=== PATIENT | male | born 1975 | race Caucasian/White ===

== ENCOUNTER 2018-02-19 22:19 | Emergency (ER) | payer BC ==
[2018-02-19] MEDS ORDERED: Lidocaine 1% 20 ML MDV INJECT ONE (22:33)
--- NOTE | 2018-02-19 22:34 | EDM.PDOC ---
ED HPI GENERAL MEDICAL PROBLEM - General Stated Complaint: PT HURT LT HAND Time Seen by Provider: 02/19/18 22:34 Source of Information: Reports: Patient - History of Present Illness INITIAL COMMENTS - FREE TEXT/NARRATIVE: HISTORY AND PHYSICAL: History of present illness: [Patient was working on his truck/trailer hitch removing a zip tie with his pocket knife ended up with a puncture wound to the left hyperthenar eminence approximately 1-1.5 cm linear laceration/puncture wound. Tendon function intact pre-and post suture entire limb neurovascularly intact ] Review of systems: As per history of present illness and below otherwise all systems reviewed and negative. Past medical history: As per history of present illness and as reviewed below otherwise noncontributory. Surgical history: As per history of present illness and as reviewed below otherwise noncontributory. Social history: No reported history of drug or alcohol abuse. Family history: As per history of present illness and as reviewed below otherwise noncontributory. Physical exam: HEENT: Atraumatic, normocephalic, pupils reactive, negative for conjunctival pallor or scleral icterus, mucous membranes moist, throat clear, neck supple, nontender, trachea midline. Lungs: Clear to auscultation, breath sounds equal bilaterally, chest nontender. Heart: S1S2, regular, negative for clicks, rubs, or JVD. Abdomen: Soft, nondistended, nontender. Negative for masses or hepatosplenomegaly. Negative for costovertebral tenderness. Pelvis: Stable nontender. Genitourinary: Deferred. Rectal: Deferred. Extremities: Atraumatic, negative for cords or calf pain. Neurovascular unremarkable. Neuro: Awake, alert, oriented. Cranial nerves II through XII unremarkable. Cerebellum unremarkable. Motor and sensory unremarkable throughout. Exam nonfocal. Left hand as per history of present illness Diagnostics: [Clinical ] Therapeutics: [Tetanus status is up-to-date 2 years prior per patient Lidocaine ] wound cleansed and explored #3 4-0 Prolene sutures interrupted Standard wound care instructions Impression: [ laceration/puncture wound ] 1.5 cm linear laceration Definitive disposition and diagnosis as appropriate pending reevaluation and review of above. left palm Pain Score (Numeric/FACES): 6 - Related Data Allergies Allergy/AdvReac Type Severity Reaction Status Date / Time No Known Allergies Allergy Verified 02/19/18 22:35 Home Meds: Home Meds . [No Known Home Meds] 02/19/18 [History] ED ROS GENERAL - Review of Systems Review Of Systems: ROS reveals no pertinent complaints other than HPI. ED EXAM, GENERAL - Physical Exam Exam: See Below Course - Vital Signs Last Recorded V/S: Last Vital Signs Temp 97.7 F 02/19/18 22:35 Pulse 80 02/19/18 22:35 Resp 18 02/19/18 22:35 BP 127/87 02/19/18 22:35 Pulse Ox 98 02/19/18 22:35 - Orders/Labs/Meds Meds: Medications Discontinued Medications Generic Name Dose Route Start Last Admin Trade Name Freq PRN Reason Stop Dose Admin Lidocaine HCl 20 ml 02/19/18 22:33 Xylocaine 1% INJECT 02/19/18 22:34 ONETIME ONE Departure - Departure Time of Disposition: 23:08 Disposition: Home, Self-Care 01 Condition: Good Clinical Impression: Laceration - Discharge Information Additional Instructions: Bacitracin Telfa dressing Standard wound care instructions Keep wound clean and dry for 48 hours Return if redness warmth or pus drainage should these develop Sutures out in 10 days The following information is given to patients seen in the emergency department who are being discharged to home. This information is to outline your options for follow-up care. We provide all patients seen in our emergency department with a follow-up referral. The need for follow-up, as well as the timing and circumstances, are variable depending upon the specifics of your emergency department visit. If you don't have a primary care physician on staff, we will provide you with a referral. We always advise you to contact your personal physician following an emergency department visit to inform them of the circumstance of the visit and for follow-up with them and/or the need for any referrals to a consulting specialist. The emergency department will also refer you to a specialist when appropriate. This referral assures that you have the opportunity for follow-up care with a specialist. All of these measure are taken in an effort to provide you with optimal care, which includes your follow-up. Under all circumstances we always encourage you to contact your private physician who remains a resource for coordinating your care. When calling for follow-up care, please make the office aware that this follow-up is from your recent emergency room visit. If for any reason you are refused follow-up, please contact the [facility] emergency department at and asked to speak to the emergency department charge nurse.
[2018-02-19] MEDS ORDERED: Bacitracin Oint 1 GM U/D Packet TOP ONE (23:19)
== END 2018-02-19 23:43 | disposition home or self-care (01) ==
LOC: MW.ED 22:19
DX: S61.412A Laceration without foreign body of left hand, initial encounter (principal); W26.0XXA Contact with knife, initial encounter
CPT/HCPCS: 99282